=== PATIENT | male | born 1995 | race Caucasian/White ===

== ENCOUNTER 2018-08-08 17:22 | Emergency (ER) | payer BC ==
[~2018-08-08] VITALS: Ht 175.3 cm; Wt 86.7 kg
[2018-08-08 17:25] VITALS: BP 137/84; PULSE 79; RESP 18; Ht 175.3 cm; Wt 86.7 kg
--- NOTE | 2018-08-08 17:57 | ERD ---
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 The patient denies blurred vision, no fever or chills, no headache, no nausea or vomiting. No medications taken at this time. ROS All systems reviewed and are negative except as per history of present illness. Medications Home Meds Active Scripts Polymyxin B Sulfate-TMP* (Polymyxin B-TMP Eye Drops*) 10 Ml Drops, 1 DROP LEFT EYE QID for 7 Days, EA Prov:JANE PADILLA MD 08/08/18 Erythromycin Base (Erythromycin) 1 Gm Oint...g., 1 APPLIC LEFT EYE QID for 7 Days Prov:JANE PADILLA MD 08/08/18 Allergies Allergies: Coded Allergies: No Known Allergy (Unverified , 05/24/11) PMhx/Soc Medical and Surgical Hx: pt denies Medical Hx, pt denies Surgical Hx Hx Miscellaneous Medical Probl: No Hx Alcohol Use: No Hx Substance Use: No Hx Tobacco Use: No Smoking Status: Never smoker FmHx Family History: No diabetes, No coronary disease Physical Exam Vitals Vital Signs Date Temp Pulse Resp B/P (MAP) Pulse Ox O2 O2 Flow FiO2 Time Delivery Rate 08/08/18 98.8 79 18 137/84 99 17:25 (101) Physical Exam Patient alert, oriented, vital signs stable. HEAD: Normocephalic, atraumatic. EYES: Left eye: 0.4 cm erythematous lump, located in the inner lower eyelid. PERRLA, EOMI, Sclera and conjunctiva appear normal. NOSE: Clear and patent nostrils. EARS: Canals clear, tympanic membranes WNL. MOUTH: normal lips and tongue, no oral lesions. THROAT: Normal oropharynx, no tonsillar exudates. NECK: Supple, No lymphadenopathy. Full ROM without pain or tenderness. HEART: RRR, no rubs, murmurs, clicks or gallops. LUNGS: Clear to auscultation. ABDOMEN: Soft, non-tender without masses or hepatosplenomegaly. EXTREMITIES: No edema bilaterally. BACK: Full ROM, no deformity, normal back exam NEURO: Cranial nerves grossly intact, no motor or sensory deficit SKIN: No rashes, no petechia. Procedures/MDM Differential diagnosis include but not limited to: infection bacterial/viral/fungal, iritis, scleritis, corneal abrasion, allergies, foreign body, glaucoma. Physical examination and clinical presentation consistent most likely with hordeolum of the left lower eyelid. During the ED course the patient remained stable, no new complaints. Clinical impression discussed with patient who agrees with management. The patient is stable to be treated outpatient and will be discharged home; Some side effects of prescribed medications (headache, rash, nausea, vomiting, diarrhea, interactions with other medications) were reviewed. The patient was instructed to follow up with the primary care provider in the next 48h. If symptoms persist, worsen or new symptoms develop, then patient should return to the ED immediately. Disclaimer: Inadvertent spelling and grammatical errors are likely due to EHR/dictation software use and do not reflect on the overall quality of patient care. Also, please note that the electronic time recorded on this note does not necessarily reflect the actual time of the patient encounter. Departure Diagnosis: Primary Impression: Hordeolum internum of left lower eyelid Condition: Stable Additional Instructions: Thank you very much for allowing us to participate in your care. Your health and safety is our top priority at [facility]. The evaluation in the emergency department has been done to rule out an acute emergency. Chronic, [id number] conditions may have not been evaluated; therefore, you need to follow up with a primary care provider in the next 48h. If symptoms persist, worsen or new symptoms develop, then patient should return to the ED immediately. Call your primary care doctor TOMORROW for an appointment during the next 2-4 days and bring all the information provided. Have prescriptions filled and follow precisely the directions on the label. If the symptoms get worse and your provider is unavailable, return to the Emergency Department immediately. JANE PAIDLLA MD Aug 08, 2018 17:57
[2018-08-08] MEDS ORDERED: POLY10DR19 LEFT EYE (17:59)
[2018-08-08] MEDS ORDERED: ERYT1OIN6 LEFT EYE (17:59)
== END 2018-08-08 18:13 | disposition home or self-care (01) ==
LOC: FTE 17:22
DX: H00.025 Hordeolum internum left lower eyelid (principal)
CPT/HCPCS: 99283

== ENCOUNTER 2018-10-30 13:51 | Emergency (ER) | payer BC ==
[~2018-10-30] VITALS: Ht 154.9 cm; Wt 70.0 kg
[~2018-10-30 13:51] MED LIST: CETI10CA PO; ERYT1OIN6 LEFT EYE; HC30CR25 TOP; POLY10DR19 LEFT EYE
[2018-10-30 14:14] VITALS: BP 126/65; PULSE 81; RESP 19; Ht 154.9 cm; Wt 70.0 kg
== END 2018-10-30 14:48 | disposition home or self-care (01) ==
LOC: E/R 13:51
DX: S80.861A Insect bite (nonvenomous), right lower leg, initial encounter (principal); S80.862A Insect bite (nonvenomous), left lower leg, initial encounter; W57.XXXA Bitten or stung by nonvenomous insect and other nonvenomous arthropods, initial encounter; Y92.9 Unspecified place or not applicable
CPT/HCPCS: 99282